=== PATIENT | female | born 2000 | race Caucasian/White ===

== ENCOUNTER 2022-10-21 15:36 | Inpatient (IN) | payer OTHER ==
[2022-10-21 16:10] LABS: Creatinine,Urine Random 96.6 mg/dL; Protein/Creatinine Ratio,Urine 0.186
[2022-10-21 16:31] LABS: Basophils % (A) 0 %; Eosinophils # (A) 0.1 k/uL (0-0.7); Eosinophils % (A) 1 %; HCT 31.9 % (34.0-46.0); HGB 11.5 gm/dL (11.4-16.0); Lymphocytes # (A) 1.6 k/uL (1.0-4.8); Lymphocytes % (A) 19 %; MCV 88.7 fL (80.0-100.0); Mean Platelet Volume 9.4; Monocytes # (A) 0.4 k/uL (0-1.0); Monocytes % (A) 5 %; Neutrophils # (A) 6.3 k/uL (1.3-7.7); Neutrophils % (A) 73 %; Platelet Count 132 k/uL (150-450); RDW 13.8 % (11.5-15.5); WBC 8.6 k/uL (3.8-10.6)
[2022-10-21 16:49] LABS: ALT 13 U/L (4-34); AST 23 U/L (14-36); African American GFR (CKD) >90 (>60 ml/min/1.73 sqM); Albumin 3.8 g/dL (3.5-5.0); Alkaline Phosphatase 210 U/L (38-126); Anion Gap 5 mmol/L; Blood Urea Nitrogen 5 mg/dL (7-17); Calcium 8.8 mg/dL (8.4-10.2); Carbon Dioxide 22 mmol/L (22-30); Chloride 107 mmol/L (98-107); Glucose 77 mg/dL (74-99); Non-African American GFR(CKD) >90 (>60 ml/min/1.73 sqM); Potassium 4.2 mmol/L (3.5-5.1); Sodium 134 mmol/L (137-145); Total Bilirubin 0.3 mg/dL (0.2-1.3); Total Protein 6.6 g/dL (6.3-8.2); Uric Acid 6.6 mg/dL (3.7-7.4)
[2022-10-21] MEDS ORDERED: TERBUTALINE 1 MG/ML VIAL SQ PRN (17:00)
[2022-10-21] MEDS ORDERED: CLINDAMYCIN 900 MG in DEXTROSE 5% IN WATER 50 ML IVPB STA ×2 (17:00)
[2022-10-21] MEDS ORDERED: LIDOCAINE 0.5% (PF) 5 MG/ML (50 ML SDV) SQ PRN (17:00)
[2022-10-21] MEDS: LACTATED RINGERS 1,000 ML IV SCH ×2 (17:48→21:00)
[2022-10-21] MEDS ORDERED: OXYTOCIN 30 UNITS/500 ML NS 30 UNIT in SALINE 1 500ML.BAG IV SCH (18:30)
[2022-10-21] MEDS ORDERED: VANCOMYCIN IV PER PHARMACY 1 EACH MISC MISCELLANE PRN (18:37)
--- NOTE | 2022-10-21 18:43 | P.HPOB ---
History of Present Illness H&P Date: 10/21/22 Chief Complaint: Elevated blood pressures, spontaneous rupture of membranes This is a pleasant 22 year old at 38 weeks and 6 days with EDC of 10/29/2022 who presents to labor and delivery after having an elevated blood pressure of 150/100 in the office today. Last week's blood pressure was also elevated at last week's visit (132/90). She was diagnosed with gestational hypertension and delivery was recommended. Upon arriving to her labor suite, she had SROM with clear fluid noted around 1800. PIH labs were obtained and were essentially within normal limits but of note platelets were 132 and P:C was 0.2. Laboratory workup: blood type O positive, antibody screen negative, rubella immune, VDRL non-reactive, HBsAG negative, HIV non-reactive, gonorrhea negative, chlamydia negative, 1 hr GTT 120, GBS positive Past Medical History History of Any Multi-Drug Resistant Organisms: None Reported Smoking Status: Never smoker Medications and Allergies Home Medications Medication Instructions Recorded Confirmed Type Vit No.179/Iron/Folic 1 each PO DAILY 10/21/22 10/21/22 History [ Tablet] Allergies Allergy/AdvReac Type Severity Reaction Status Date / Time Penicillins Allergy Swelling Verified 10/21/22 15:44 Exam Vital Signs Temp Pulse Resp BP Pulse Ox 10/21/22 15:43 97.7 F 76 18 136/82 98 Intake and Output 10/21/22 10/21/22 10/21/22 06:59 14:59 22:59 Other: Weight 83.007 kg Focused exam is performed. Pleasant, healthy-appearing gravid woman in no apparent distress. Cervical exam 1 centimeter dilated, 70% effacement, and -3 station. Gross pooling of amniotic fluid in the vagina with positive amnisure. Results Result Diagrams: 10/21/22 16:03 10/21/22 16:03 Abnormal Lab Results - Last 24 Hours (Table) 10/21/22 10/21/22 Range/Units 16:03 16:03 RBC 3.60 L (3.80-5.40) m/uL Hct 31.9 L (34.0-46.0) % Plt Count 132 L (150-450) k/uL Sodium 134 L (137-145) mmol/L BUN 5 L (7-17) mg/dL Alkaline Phosphatase 210 H (38-126) U/L Assessment and Plan Assessment: 22 year old at 38 weeks and 6 days with gestational hypertension and SROM at 1800 here for medical induction of labor. Plan: - Admit, NPO, mIVF, oxytocin per protocol. Continuous EFM with close monitoring of mother and baby. Time with Patient: Less than 30
[2022-10-21] MEDS ORDERED: BUTORPHANOL 1 MG/ML 1 ML VIAL IV PRN (18:45)
[2022-10-21] MEDS: VANCOMYCIN 1,500 MG in SODIUM CHLORIDE 0.9% 500 ML 500 ML IVPB SCH (19:09)
--- NOTE | 2022-10-21 20:27 | P.PROBDLV ---
Vaginal Delivery Note - . Vaginal Delivery Note: DATE OF SERVICE: 10/21/2022 PROCEDURE: Normal Vaginal Delivery ATTENDING: Dr. Leslie Valle MD ESTIMATED BLOOD LOSS: 100 mL FINDINGS: VMI, Apgars 9/9, Weight 7 pounds and 11 ounces PROCEDURE: Patient was a 22 y/o who presented to labor and delivery for elective induction of labor at 39 weeks and 1 day. Cooks catheter was placed and oxytocin was started. After cooks catheter was removed, AROM was undertaken with clear fluid noted. The patient quickly progressed to complete. Head delivered without difficulty followed by shoulders and body over intact perineum. placed on maternal abdomen and bulb suctioned. Cord was clamped and cut after a 30 second delay. Placenta delivered whole with gentle cord traction. Oxytocin was started to facilitate uterine tone. Uterine fundus firm and bleeding minimal upon fundal massage. Perineal inspection revealed hemostatic bilateral periurethral abrasions that did not require repair and an intact perineum. Patient stable .
[2022-10-21] MEDS ORDERED: SODIUM CHLORIDE 0.9% 100 ML BAG ONE (21:05)
[2022-10-21] MEDS ORDERED: fentaNYL (PF) 50 MCG/ML 5 ML AMP ONE (21:05)
[2022-10-21] MEDS ORDERED: ROPIVACAINE 5 MG/ML 20 ML AMPULE ONE (21:05)
[2022-10-21] MEDS ORDERED: ROPIVACAINE 100 MG, fentaNYL (PF). 200 MCG in SODIUM CHLORIDE 0.9% 76 ML EPIDURAL ONE (22:30)
[2022-10-22] MEDS ORDERED: CLINDAMYCIN 900 MG in DEXTROSE 5% IN WATER 50 ML IVPB SCH ×2 (01:00)
[2022-10-22] MEDS: VANCOMYCIN 1,500 MG in SODIUM CHLORIDE 0.9% 500 ML 500 ML IVPB SCH ×2 (03:09→12:53)
[2022-10-22] MEDS ORDERED: CITRIC ACID-SODIUM CITRATE 15 ML CUP PO ONE (05:55)
[2022-10-22] MEDS ORDERED: GENTAMICIN 320 MG in SODIUM CHLORIDE 0.9% 100 ML IVPB ONE (05:55)
[2022-10-22] MEDS ORDERED: AZITHROMYCIN 500 MG in SODIUM CHLORIDE 0.9% 250 ML IVPB STA (05:56)
[2022-10-22] MEDS ORDERED: CLINDAMYCIN 900 MG in DEXTROSE 5% IN WATER 50 ML IVPB ONE ×2 (06:00)
[2022-10-22] MEDS ORDERED: fentaNYL (PF) 50 MCG/ML 2 ML AMP ONE (06:18)
[2022-10-22] MEDS ORDERED: ONDANSETRON 4 MG/2 ML VIAL ONE (06:18)
[2022-10-22] MEDS ORDERED: MORPHINE SULFATE (PF) 0.3 MG/0.3 ML SYR ONE (06:18)
[2022-10-22] MEDS ORDERED: KETOROLAC 15 MG/ML 1 ML VIAL ONE (06:18)
[2022-10-22] MEDS ORDERED: OXYTOCIN 30 UNITS/500 ML NS BAG IV ONE (06:18)
[2022-10-22] MEDS ORDERED: NALBUPHINE 10 MG/ML (1 ML AMP) ONE (06:18)
[2022-10-22] MEDS ORDERED: METOCLOPRAMIDE 5 MG/ML 2 ML VIAL IVP PRN (07:09)
[2022-10-22] MEDS ORDERED: diphenhydrAMINE 50 MG/ML 1 ML VIAL IVP PRN ×2 (07:09)
[2022-10-22] MEDS ORDERED: NALOXONE 0.4 MG/ML 1 ML VIAL IV PRN ×2 (07:09→08:15)
[2022-10-22] MEDS ORDERED: diphenhydrAMINE 25 MG CAP PO PRN (07:09)
[2022-10-22] MEDS ORDERED: diphenhydrAMINE 50 MG CAP PO PRN (07:09)
[2022-10-22] MEDS ORDERED: ZOLPIDEM 5 MG TAB PO PRN (07:09)
[2022-10-22] MEDS ORDERED: ONDANSETRON 4 MG/2 ML VIAL IVP PRN (07:09)
[2022-10-22] MEDS ORDERED: OXYTOCIN 30 UNITS/500 ML NS 30 UNIT in SALINE 1 500ML.BAG IV SCH (07:15)
[2022-10-22] MEDS ORDERED: LACTATED RINGERS 1,000 ML IV SCH (07:15)
--- NOTE | 2022-10-22 07:29 | P.OP ---
Date of Procedure: 10/22/22 Preoperative Diagnosis: 1. Arrest of descent 2. Persistent category 2 heart tracing Postoperative Diagnosis: 1. Arrest of descent 2. Persistent Category 2 heart tracing Procedure(s) Performed: Primary lower transverse section Implants: None Anesthesia: epidural Surgeon: Leslie Valle Clinical Interviewer #1: Celestina Johnson Estimated Blood Loss (ml): 592 Urine output (ml): 50 (per anesthesia records) Pathology: none sent Condition: stable Disposition: floor Indications for Procedure: his is a 22-year-old at 39 weeks and 0 days who is admitted yesterday evening for induction of labor for newly diagnosed gestational hypertension. Upon arriving to her laboring suite she had spontaneous rupture of membranes. Oxytocin per protocol was started and she progressed quickly to complete dilation she began pushing around 410 this morning and pushed for nearly 2 hours. She was not able to move the head effectively and significant caput was noted on cervical exam. The patient was becoming exhausted from pushing and the section was recommended for maternal and well- being. The risks of bleeding, infection, damage to surrounding structures such as bowel bladder and ureters, and risk of postoperative VTE were discussed with the patient. All questions were answered. The patient desires to proceed with section at this time. Operative Findings: Viable male infant born in occiput anterior presentation. Apgars 3/9/9 at 1 minute, 5 minutes, and 10 minutes, respectively. Weight 7 pounds 14 ounces. Significant caput and nuchal cord x1. Normal appearing uterus, fallopian tubes, and ovaries. Description of Procedure: The patient was taken back to the operating room where spinal anesthesia was found to be adequate. Gentamicin, Clindamycin, and Azithromycin were given for infection prophylaxis. She was prepared and draped in the dorsal supine position with a leftward tilt. A Pfannenstiel skin incision was made with the scalpel. The incision was carried down to the fascia. The fascia was incised and extended laterally with Laura scissors. The superior aspect of the fascia was grasped with the Ramya clamps. The underlying rectus muscle was dissected off sharply with Laura scissors. In a similar fashion, the inferior aspect of the fascia was elevated with Ramya clamps and the rectus muscle and pyramidalis were dissected off. Excellent hemostasis was achieved with the bovie. The rectus muscle was in the midline down to the level of the pubic symphysis. Pre-pe ritoneal fatty tissue was bluntly dissected to expose the peritoneum. The peritoneum was found to be free of adherent bowel and entered sharply with Metzenbaum scissors. The peritoneal incision was extended superiorly and inferiorly to the bladder reflection with good visualization of the bladder. The bladder blade was inserted and vesicouterine peritoneum was identified. Intraabdominal survey revealed scant, clear peritoneal fluid and the thinned-out lower uterine segment. The bladder blade was repositioned to keep the bladder out of the operative field. The lower uterine segment was incised with a scalpel. The uterine incision was extended bluntly with lateral and upward traction. The fetus was in occiput anterior position. The head was elevated out of the pelvis with special attention paid to avoid using the uterine incision as a fulcrum. Gentle fundal pressure was applied once the head was brought into the incision. The infant was delivered with no difficulty. The mouth and nose were suctioned with a bulb. The cord was clamped and cut. The was handed off to the dope edger. IV oxytocin was initiated to facilitate uterine contractions. The placenta was delivered intact with manual massage of uterine fundus. The uterus was then exteriorized and the inside of the uterus was gently wiped with a lap sponge to assure complete removal of placental membranes. The uterine incision was closed with a 0-Polysorb suture in a running locked fashion. A second imbricating layer with 0-Polysorb was used. Additional figure of eight sutures with 0-Polysorb were placed for hemostasis. The ovaries and tubes were found to be normal. The uterus, tubes, and ovaries were then gently returned to the abdominal cavity. The blood clots and fluid were wiped out of the abdomen and pelvis with moist laparotomy sponges. The uterine incision was reinspected and excellent hemostasis was noted. The fascial layer was closed with a 0-Polysorb suture. The subcutanous layer was approximated with 2-0 Plain Gut suture in a running fashion. The skin was closed with 4-0 suture in a subcuticular fashion. The patient tolerated the procedure well. All the counts were correct times two. The patient was taken to the recovery room in a stable condition.
[2022-10-22] MEDS: KETOROLAC 15 MG/ML 1 ML VIAL IVP SCH ×2 (07:42→22:09)
[2022-10-22] MEDS ORDERED: MORPHINE SULFATE 2 MG/ML SYRINGE IVP PRN (08:15)
[2022-10-22] MEDS: LACTATED RINGERS 1,000 ML IV SCH ×2 (08:49→16:22)
[2022-10-22] MEDS: IBUPROFEN 600 MG TAB PO SCH ×2 (13:59→19:58)
[2022-10-22] MEDS: SENNOSIDES-DOCUSATE SODIUM 1 EACH TAB PO SCH ×2 (14:01→20:00)
[2022-10-22] MEDS: ACETAMINOPHEN TAB 500 MG TAB PO SCH ×2 (14:01→16:27)
[2022-10-22 22:08] VITALS: RESP 16
[2022-10-23] MEDS: ACETAMINOPHEN TAB 500 MG TAB PO SCH ×5 (00:19→23:54)
[2022-10-23] MEDS: IBUPROFEN 600 MG TAB PO SCH ×4 (04:33→20:25)
[2022-10-23] MEDS: LACTATED RINGERS 1,000 ML IV SCH (06:39)
[2022-10-23] MEDS: KETOROLAC 15 MG/ML 1 ML VIAL IVP SCH (06:39)
--- NOTE | 2022-10-23 07:35 | P.PNOBGPC ---
Subjective - Subjective Principal diagnosis: Postop day 1 Interval history: Some increasing incisional pain this morning. Patient reports: Reports appetite normal, Reports voiding normally, Reports ambulating normally, Denies pain well controlled, Denies nauseated [place]: doing well Objective - Vital Signs Latest vital signs: Vital Signs Temp Pulse Resp BP Pulse Ox 10/23/22 04:00 98.1 F 88 16 112/68 10/23/22 00:00 98.2 F 67 16 114/69 10/22/22 20:00 98.0 F 80 16 114/71 10/22/22 17:00 99 10/22/22 15:51 98.1 F 82 14 114/71 10/22/22 13:15 99 10/22/22 13:05 98 F 88 14 112/65 10/22/22 11:15 16 10/22/22 09:15 16 98 10/22/22 09:13 98.5 F 83 17 129/75 98 10/22/22 08:43 88 17 128/81 97 10/22/22 08:15 16 98 10/22/22 08:12 98.9 F 85 17 147/82 97 10/22/22 07:58 84 17 144/81 98 10/22/22 07:43 93 16 125/81 97 Intake and Output 10/22/22 10/23/22 10/23/22 22:59 06:59 14:59 Output Total 250 400 Balance -250 -400 Output: Urine 250 400 Other: Voiding Method Indwelling Catheter - Exam Extremities: Present: normal, tenderness, edema Abdomen: Present: normal appearance, soft, tenderness. Absent: distention Incision: Present: normal, dry, intact Uterus: Present: normal, firm. Absent: tenderness Assessment and Plan (1) Arrest of descent, delivered, current hospitalization Current Visit: Yes Status: Acute Code(s): O62.1 - SECONDARY UTERINE INERTIA SNOMED Code(s): 16471241 (2) Gestational hypertension Current Visit: Yes Status: Acute Code(s): O13.9 - GESTATIONAL HTN W/O SIGNIFICANT PROTEINURIA, UNSP TRIMESTER SNOMED Code(s): 76601111 (3) S/P section Current Visit: Yes Status: Acute Code(s): Z98.891 - HISTORY OF UTERINE SCAR FROM PREVIOUS SURGERY SNOMED Code(s): 679713936 (4) Category II heart rate tracing during labor and delivery Current Visit: Yes Status: Acute Code(s): O76 - ABNLT IN HEART RATE AND RHYTHM COMP LABOR AND DELIVERY SNOMED Code(s): 290676606 Plan: Postop day 1 status post primary low transverse section. Discussed the scheduled oral pain medication use. Increased ambulation today. Possible discharge home tomorrow. Routine care.
[2022-10-23 08:32] LABS: Basophils % (A) 0 %; Eosinophils # (A) 0.1 k/uL (0-0.7); Eosinophils % (A) 1 %; HCT 26.9 % (34.0-46.0); Lymphocytes # (A) 0.8 k/uL (1.0-4.8); Lymphocytes % (A) 7 %; MCH 31.2 pg (25.0-35.0); MCHC 34.4 g/dL (31.0-37.0); MCV 90.5 fL (80.0-100.0); Mean Platelet Volume 9.5; Monocytes # (A) 0.4 k/uL (0-1.0); Monocytes % (A) 3 %; Neutrophils # (A) 9.3 k/uL (1.3-7.7); Neutrophils % (A) 87 %; Platelet Count 113 k/uL (150-450); RBC 2.97 m/uL (3.80-5.40); RDW 14.5 % (11.5-15.5); WBC 10.6 k/uL (3.8-10.6)
[2022-10-23 08:37] LABS: HGB 9.3 gm/dL (11.4-16.0)
--- NOTE | 2022-10-23 08:42 | P.PN ---
Progress Note - Text Progress Note Date: 10/23/22 Postoperative day 1 status post section under spinal anesthesia, and i ntrathecal morphine given for postoperative analgesia, patient doing well, there is no anesthesia related complications, Patient had no headache, vital signs stable , Assessment and plan= postop day 1 status post , doing well there is no anesthesia related complication.
[2022-10-23] MEDS: SENNOSIDES-DOCUSATE SODIUM 1 EACH TAB PO SCH ×2 (08:44→20:26)
[2022-10-24] MEDS: IBUPROFEN 600 MG TAB PO SCH ×3 (05:46→12:54)
[2022-10-24] MEDS: ACETAMINOPHEN TAB 500 MG TAB PO SCH ×2 (05:47→08:58)
[2022-10-24] MEDS: SENNOSIDES-DOCUSATE SODIUM 1 EACH TAB PO SCH (08:58)
[2022-10-24 10:15] VITALS: BP 132/82; PULSE 69; TEMP 98
--- NOTE | 2022-10-24 12:49 | P.DS ---
Providers Date of admission: 10/21/22 17:04 Expected date of discharge: 10/24/22 Attending physician: Leslie Valle MD Primary care physician: Leslie Valle MD - Discharge Diagnosis(es) (1) Arrest of descent, delivered, current hospitalization Current Visit: Yes Status: Acute (2) Gestational hypertension Current Visit: Yes Status: Acute (3) S/P section Current Visit: Yes Status: Acute (4) Category II heart rate tracing during labor and delivery Current Visit: Yes Status: Acute Hospital Course: 22-year-old 1 now para 1 woman who is admitted at 38-6/7 weeks' gestation for induction of labor secondary to gestational hypertension. She was admitted for induction and had spontaneous rupture of membranes. Pitocin induction was therefore initiated. She had normal PIH labs on admission. She did reach complete cervical dilation and commenced pushing however had arrest of descent and category 2 heart tones. She was therefore taken to primary low transverse section. Findings at the time of surgery were significant for a male with Apgars of 2 at 1 minute and 8 at 5 minutes and 9 at 10 minutes. There was a nuchal cord 1. Please see the operative report for details. The patient's postoperative course was unremarkable. By postoperative day #1 her vital signs remained stable and her postoperative labs were within normal limits. Lochia was decreasing. By postoperative day #2 she continued to do well with blood pressures in the 110s to 120s over 70s to 80s. She had decreasing lochia. She was ambulating and voiding without difficulty and tolerating a general diet. She was therefore discharged home on postoperative day #2 with routine instructions for care and follow-up. Procedures: Primary low transverse section Patient Condition at Discharge: Good Plan - Discharge Summary Discharge Rx Participant: No New Discharge Prescriptions: No Action Vit No.179/Iron/Folic [ Tablet] 1 each PO DAILY Discharge Medication List Vit No.179/Iron/Folic [ Tablet] 1 each PO DAILY 10/21/22 [History] Follow up Appointment(s)/Referral(s): Leslie Valle MD [Primary Care Provider] - 1 Week (Blood pressure check) Patient Instructions/Handouts: Depression (DC), Perineal Care (DC), Caring for Your Baby (DC), Your Baby (DC), and the Working Mom (DC), Expression, Collection and Storage of Breast Milk (DC), How to Increase Your Milk Supply (DC), Bleeding (DC), (DC) Activity/Diet/Wound Care/Special Instructions: No lifting heavier than 15 pounds for 6 weeks. Pelvic rest for 6 weeks. Otherwise, activity as tolerated. Follow-up in 1- 2 weeks after surgery in the office. Call the office with any concerning signs or symptoms including fever greater than 101, severe abdominal pain, heavy vaginal bleeding, signs of wound infection, increased swelling or redness of the lower extremities, signs of depression. No driving for 2 weeks after surgery. No heavy lifting or vigorous activity until reevaluated in the office. No intercourse for 6 weeks after delivery. Discharge Disposition: HOME SELF-CARE
== END 2022-10-24 17:00 | disposition home or self-care (01) | DRG 788 ==
LOC: FBPOP 15:36 → 4FBP 17:04
PROVIDERS: ADMIT Obstetrics & Gynecology; ATTEND Obstetrics & Gynecology
PROC: 10D00Z1 Extraction of Products of Conception, Low, Open Approach (ICD-10-PCS; principal; 2022-10-22 05:55)
DX: O13.4 Gestational [pregnancy-induced] hypertension without significant proteinuria, complicating childbirth (principal); O36.8330 Maternal care for abnormalities of the fetal heart rate or rhythm, third trimester, not applicable or unspecified; O62.1 Secondary uterine inertia; O69.81X0 Labor and delivery complicated by cord around neck, without compression, not applicable or unspecified; O99.824 Streptococcus B carrier state complicating childbirth; Z37.0 Single live birth; Z3A.38 38 weeks gestation of pregnancy; Z28.310 Unvaccinated for COVID-19; Z79.899 Other long term (current) drug therapy; Z88.0 Allergy status to penicillin
CPT/HCPCS: 59025; 80053; 82570; 84156; 84550; 85025; 86850; 86900; 86901